=== PATIENT | male | born 1980 | race Caucasian/White ===

== ENCOUNTER 2020-02-07 16:16 | Emergency (ER) | payer BC, SELFPAY ==
--- NOTE | 2020-02-07 16:36 | ED.SKABFB ---
HPI - Skin/Abscess/Foreign Bdy General Chief complaint: Skin/Abscess/Foreign Body Stated complaint: possible spride bite Time Seen by Provider: 02/07/20 16:47 Source: patient and RN notes reviewed Mode of arrival: ambulatory Limitations: no limitations History of Present Illness HPI narrative: This is a 39 years old male presents to the office for an evaluation of insect bite of left pinky yesterday. He was outside when he noticed the sting however he did not see what it was. He reported pain immediately after the bite however he did not notice the swelling and itchiness until today. Currently he complains of tingling/pain and itchiness of his left hand. He is right-hand dominant. Td is up-to-date. He took 1 dose of Benadryl last night. Related Data Allergies Allergy/AdvReac Type Severity Reaction Status Date / Time Penicillins Allergy Unknown Unknown Verified 10/23/19 09:07 Review of Systems Review of Systems: Narrative: CONSTITUTIONAL: Denies fever, chills ENT: Denies congestion CARDIOVASCULAR: Denies chest pain RESPIRATORY: Denies dyspnea GASTROINTESTINAL: Denies abdominal pain, nausea, vomiting SKIN:Reports insect bite on his left pinky finger MUSCULOSKELETAL: Denies acute joints pain NEUROLOGIC: Denies lightheaded All other systems reviewed are negative, except as documented in HPI. [facility] Past Medical History Medical History Choledochal cyst age 4 Dyslipidemia Environmental allergies History of prediabetes IMANI (obstructive sleep apnea) Type 2 diabetes mellitus without complications Surgical History Surgical History History of cholecystectomy age 4 - choledochal cyst History of removal of cyst age 4 History of tonsillectomy and adenoidectomy first grade Hx of tympanostomy tubes 1985 and 1986 [place] teeth extracted 2018 - all 4 Family History Family History Other Family history of coronary artery disease Hypertension Social History Social History Smoking status: Never smoker Second hand tobacco smoke exposure: No Alcohol intake: current Substance use: never Substance use type: does not use Comments At time of signature, I agree with nursing past medical, surgical, social and family history. There is no relevant family history pertinent to the presenting complaint. Exam Narrative: Exam Narrative: GENERAL: This is a well-nourished, well-developed patient, in no apparent distress. NECK: Neck supple, non-tender without lymphadenopathy, masses or thyromegaly. CARDIOVASCULAR: Regular rate and rhythm without murmurs, gallops, or rubs. RESPIRATORY: Clear to auscultation. Breath sounds equal bilaterally. No wheezes, rales, or rhonchi. GASTROINTESTINAL: Abdomen soft, non-tender, nondistended. Bowel sounds are active. No hepato-splenomegaly, or palpable masses. No guarding. NEURO: awake, alert, and oriented to person, place and time. There were no obvious focal neurologic abnormalities. Steady gait EXTREMITIES: Normal range of motion. Cap refils brisk SKIN: left lateral fifth proximal phalange noted a nodule with generalize edematous, erythema and warmth without secondary cellulitis. Jada Coma Scale Eye Opening: Spontaneous 4 Jada Coma Scale Motor: Obeys Commands 6 Jada Coma Scale Verbal: Oriented 5 Course Vital Signs Vital signs: Vital Signs Temperature 98.9 F 02/07/20 16:37 Pulse Rate 78 02/07/20 16:37 Respiratory Rate 16 02/07/20 16:37 Blood Pressure 134/80 02/07/20 16:37 Pulse Oximetry 100 02/07/20 16:37 Temperature 98.9 F 02/07/20 16:37 Pulse Rate 78 02/07/20 16:37 Respiratory Rate 16 02/07/20 16:37 Blood Pressure 134/80 02/07/20 16:37 Pulse Oximetry 100 02/07/20 16:37 MDM - Skin/Abscess/Foreign Rafi JON
[2020-02-07 16:37] VITALS: BP 134/80; PULSE 78; RESP 16; TEMP 37.2; O2SAT 100
== END 2020-02-07 17:02 | disposition home or self-care (01) ==
PROVIDERS: Emergency Provider Nurse Practitioner
DX: S60.467A Insect bite (nonvenomous) of left little finger, initial encounter (principal); E78.5 Hyperlipidemia, unspecified; G47.33 Obstructive sleep apnea (adult) (pediatric); E11.9 Type 2 diabetes mellitus without complications; Z79.84 Long term (current) use of oral hypoglycemic drugs; W57.XXXA Bitten or stung by nonvenomous insect and other nonvenomous arthropods, initial encounter
CPT/HCPCS: 99213; G0463

== ENCOUNTER 2022-04-30 08:25 | Outpatient (CLI) | payer BC, SELFPAY ==
[2022-04-30 19:43] LABS: Basophils Percent Auto 0.3 % (0.2-1.2); Eosinophils Absolute Auto 0.6 K/mm3 (0-0.3); Eosinophils Percent Auto 6.5 % (0-4.4); Hemoglobin 13.3 g/dL (14.0-18.0); Immature Granulocyte Absolute 0.03 K/mm3 (0.00-0.031); Immature Granulocyte Percent A 0.3 % (0-0.5); Lymphocytes Absolute Auto 2.57 K/mm3 (0.9-3.2); Lymphocytes Percent Auto 29.2 % (18.3-44.2); Mean Corpuscular HGB Conc 33.3 g/dl (32-36); Mean Corpuscular Hemoglobin 28.8 pg (26-34); Mean Corpuscular Volume 86.6 fl (80-100); Mean Platelet Volume 11.5 fl (7.4-10.4); Monocytes Absolute Auto 0.6 K/mm3 (0.1-0.6); Monocytes Percent Auto 6.6 % (2.6-8.5); Neutrophils Percent Auto 57.1 % (45.5-73.1); Platelet Count Result 258 k/mm3 (150-375); Red Blood Count 4.62 M/mm3 (4.6-6.20); Red Cell Distribution Width 12.6 % (11.5-14.5); White Blood Count 8.8 K/mm3 (4.5-10.0)
[2022-04-30 19:52] LABS: Alanine Aminotransferase 29 U/L (6-50); Albumin Level 4.5 g/dL (3.5-5.1); Alkaline Phosphatase 63 U/L (38-126); Anion Gap 11 mmol/L (8-16); Aspartate Amino Transferase 36 U/L (17-59); Bilirubin,Total 0.7 mg/dL (0.2-1.3); Blood Urea Nitrogen 13 mg/dL (9-20); Calcium 9.6 mg/dL (8.4-10.2); Carbon Dioxide 26 mmol/L (22-30); Chloride 101 mmol/L (98-107); Cholesterol 145 mg/dL (0-200); Estimated Glomerular Filt Rate > 60; Glucose 178 mg/dL (65-110); HDL Direct 33 mg/dL; Potassium 4.3 mmol/L (3.4-5.0); Sodium 138 mmol/L (137-145); Triglycerides 136 mg/dL (<150)
[2022-04-30 20:05] LABS: LDL Cholesterol Direct 80 mg/dL
[2022-04-30 20:27] LABS: Hemoglobin A1C 7.8 % (<5.7)
[2022-04-30 20:40] LABS: Creatinine Urine 86.6 mg/dL
[2022-04-30 21:05] LABS: Microalbumin Urine Random < 6.0 mg/L (0-16.7)
[2022-04-30 21:06] LABS: MALB Creatinine Ratio < 6.9 mg/g (0-30)
[2022-04-30 21:42] LABS: Vitamin D 25 Hydroxy 25.3 ng/mL
== END 2022-04-30 08:26 | disposition home or self-care (01) ==
LOC: ANHGOSHLAB 08:26
PROVIDERS: PCP Family Medicine; Visit Provider Family Medicine
DX: E11.9 Type 2 diabetes mellitus without complications (principal); E78.5 Hyperlipidemia, unspecified; Z13.29 Encounter for screening for other suspected endocrine disorder; I10 Essential (primary) hypertension; Z00.00 Encounter for general adult medical examination without abnormal findings; E55.9 Vitamin D deficiency, unspecified; E53.8 Deficiency of other specified B group vitamins
CPT/HCPCS: 36415; 80053; 80061; 82043; 82306; 82607; 83036; 84443; 85025

== ENCOUNTER 2022-09-01 12:37 | Outpatient (CLI) | payer BC, SELFPAY ==
--- NOTE | ~2022-09-01 | CT_ITS ---
EXAMINATION: CT abdomen pelvis w con DATE: 09/01/2022 13:08 INDICATION: Right upper quadrant abdominal pain TECHNIQUE: Computed tomography (CT) of the abdomen and pelvis was performed with 100 CC Omnipaque 350 intravenous contrast. Automated exposure control and iterative reconstruction technique were employe d. Exam dose: 1270.05 mGy-cm total exam DLP. COMPARISON: None. FINDINGS: No infiltrate or consolidation at the lung bases. Normal heart size. No pericardial or pleu ral effusion. There is a curvilinear lucency at the anterior aspect of the hepatic dome, which isn't associated wit h any adjacent subcapsular or perihepatic abnormal fluid collection. This may be an anatomic variant versus less likely hepatic laceration. No prior examinations are available for comparison. Clinical c orrelation is advised. No hepatic space-occupying mass lesion is detected. There is a fluid-filled up to 11 mm wide structure with surgical clips in the anterior and, situated near the tamara hepatis, which may be cystic duct remnant filled with bile post cholecystectomy. The i ntrahepatic and extra hepatic bile ducts are not dilated. There is a small locule of gas within a left hepatic duct. No pancreatic mass lesion or ductal dilatation. Normal splenic size. Normal morphology of the adrenal glands. 13 mm lower pole left renal cyst. Approximately 5.6 mm lower pole left renal cyst. The kidneys are ot herwise unremarkable. No urinary tract calculus or hydroureteronephrosis. Mild prostate enlargement. Mild diffuse bladder wall thickening. Normal caliber of the abdominal aorta. No intraperitoneal or retroperitoneal or pelvic mass lesion or adenopathy or ascites. Mild bilateral fat containing inguinal hernias. Normal appendix. There is a prominent amount of fecal material in the colon. No bowel obstruction, eamon wel wall thickening, pneumatosis or intraperitoneal free air is detected. Included skeletal structures are unremarkable. IMPRESSION: Right upper quadrant distended probable cystic duct remnant Minimal pneumobilia Subtle linear lucency at the anterior hepatic dome, likely anatomic variant; less likely would be a h epatic laceration Normal appendix Bilateral fat-containing inguinal hernias Reviewed, dictated and finalized at [facility]. Reviewed, dictated and finalized at location L. VERY UNIT OPERATOR IMPRESSION: Right upper quadrant distended probable cystic duct remnant Minimal pneumobilia Subtle linear lucency at the anterior hepatic dome, likely anatomic variant; le ss likely would be a hepatic laceration Normal appendix Bilateral fat-containing inguinal hernias
[2022-09-01 13:04] LABS: Estimated Glomerular Filt Rate > 60
[2022-09-01 13:59] LABS: Alanine Aminotransferase 26 U/L (6-50); Albumin Level 4.2 g/dL (3.5-5.1); Alkaline Phosphatase 58 U/L (38-126); Anion Gap 8 mmol/L (8-16); Aspartate Amino Transferase 22 U/L (17-59); Bilirubin,Total 0.9 mg/dL (0.2-1.3); Blood Urea Nitrogen 11 mg/dL (9-20); Calcium 8.6 mg/dL (8.4-10.2); Carbon Dioxide 28 mmol/L (22-30); Chloride 100 mmol/L (98-107); Estimated Glomerular Filt Rate > 60; Glucose 130 mg/dL (65-110); Potassium 3.8 mmol/L (3.4-5.0); Sodium 136 mmol/L (137-145)
[2022-09-01 14:23] LABS: Hemoglobin A1C 7.1 % (<5.7)
== END 2022-09-01 12:38 | disposition home or self-care (01) ==
PROVIDERS: PCP Family Medicine; Visit Provider Family Medicine
DX: E11.9 Type 2 diabetes mellitus without complications (principal); R10.11 Right upper quadrant pain; K40.20 Bilateral inguinal hernia, without obstruction or gangrene, not specified as recurrent
CPT/HCPCS: 74177; 80053; 83036; Q9967

== ENCOUNTER 2022-09-01 13:57 | Emergency (ER) | payer BC, SELFPAY ==
[2022-09-01] VITALS (10 sets, daily range): BP systolic 129–146; BP diastolic 85–95; PULSE 71–86; RESP 16–20; TEMP 36.4; O2SAT 95–100
--- NOTE | ~2022-09-01 | CT_ITS ---
EXAMINATION: CT abdomen pelvis w con DATE: 09/01/2022 18:53 INDICATION: Right upper quadrant abdominal pain. TECHNIQUE: Computed tomography (CT) of the abdomen and pelvis was performed with 100 mL Omnipaque 350 intravenous contrast. Automated exposure control and iterative reconstruction technique were employe d. The dose-length product was 1347.06 mGy-cm. COMPARISON: CT abdomen and pelvis at 1:03 PM FINDINGS: The visualized portions of the lung bases demonstrate mild atelectasis. No pleural effusion . The heart size is normal. No pericardial effusion. There is a crescent of hypodensity in segment II of the liver at the dome with maximum depth of 3.1 cm. There are changes of cholecystectomy. The s pleen, pancreas, adrenal glands, and right kidney are normal. There are cysts in left kidney measurin g up to 14 mm. There are no dilated loops of bowel. The appendix is normal. The prostate is mildly en larged. There is prominent fat in the inguinal canals that may be hernias. There are no pathologicall y enlarged lymph nodes. There is no free intraperitoneal fluid. There is mild chronic anterior wedgin g of L1 vertebral body. IMPRESSION: 1. Stable crescent of hypodensity in the liver, most likely focal steatosis given the absence of rece nt trauma. A liver laceration could have the same appearance. Reviewed, dictated and finalized at location [facility]. ECTOR MACHINE PARTS IMPRESSION: 1. Stable crescent of hypodensity in the liver, most likely focal steatosis giv en the absence of recent trauma. A liver laceration could have the same appeara nce.
--- NOTE | 2022-09-01 15:44 | ED.GENADULT ---
HPI - General Adult General Chief complaint: Recheck/Abnormal Lab/Rx Stated complaint: liver laceration RUQ pain Time Seen by Provider: 09/01/22 15:24 History of Present Illness HPI narrative: Patient is a 42-year-old male with a history of diabetes, GERD, prior cholecystectomy during childhood presenting with abnormal CT. Patient states that for the last 2 days he has had pain in his right upper quadrant. He saw his PCP earlier today who obtained an outpatient CT scan which is concerning for possible liver laceration . Patient denies any recent trauma. No falls, MVC, altercations, etc. Denies nausea vomiting. Denies anticoagulation or antiplatelets. Denies fevers or chills, chest pain, shortness of breath, diarrhea, dysuria, leg swelling. Related Data Home Medications Medication Instructions Recorded Confirmed omeprazole 20 mg tablet,delayed 20 mg PO DAILY 03/24/22 09/01/22 release Allergies Allergy/AdvReac Type Severity Reaction Status Date / Time No Known Allergies Allergy Verified 09/01/22 15:17 Review of Systems Review of Systems: All systems reviewed & are unremarkable except as noted in HPI and below PMFSH Past Medical History Medical History Choledochal cyst age 4 Dyslipidemia Environmental allergies GERD without esophagitis History of esophageal dilatation 10/2020 IMANI (obstructive sleep apnea) Type 2 diabetes mellitus without complications Surgical History Surgical History History of cholecystectomy age 4 - choledochal cyst History of removal of cyst age 4 History of tonsillectomy and adenoidectomy first grade Hx of tympanostomy tubes 1985 and 1986 [place] teeth extracted 2018 - all 4 Family History Family History Other Family history of coronary artery disease Hypertension Social History Social History Smoking status: Former smoker Second hand tobacco smoke exposure: No Alcohol intake: current Alcohol use details: 1 to 2 beers consumed weekly Substance use: never Substance use type: does not use Lack of Transportation: No Lack of Food: Never True Current Housing: I Have Housing Concerned About Future Housing: No Difficulty Paying Gas/Electric Bills: No Difficulty Paying for Meds: No Currently Unemployed: No Education: Master's Degree or Higher Difficulty w/ Childcare or Family Care: No Living arrangements: with family Occupation/Education: occupation Additional occupation/education comments: [employer] Gender identity (if verbalized by the patient): Male Sexual Orientation (if Verbalized by the Patient): Straight or Heterosexual Agree to blood products: Yes Exam Narrative: GENERAL: Well-appearing, well-nourished, and in no acute distress. HEAD: Normocephalic, atraumatic. EYES: PERRLA and EOMI. ENT: Nares clear, no rhinorrhea or epistaxis. Mucous membranes moist. NECK: Supple. CHEST: Clear to auscultation. No respiratory distress. HEART: Regular rate and rhythm. No murmur heard. Normal peripheral pulses. ABDOMEN: Soft, +RUQ tenderness without guarding or rebound EXTREMITIES: Normal range of motion. No edema. SKIN: Warm, dry, no rash. NEURO: No focal deficits. Alert and oriented x3. PSYCH: Normal mood and affect. Course Vital Signs Vital signs: Vital Signs Temperature 97.6 F 09/01/22 14:17 Pulse Rate 86 09/01/22 14:17 Respiratory Rate 16 09/01/22 14:17 Blood Pressure 142/85 H 09/01/22 14:17 Pulse Oximetry 100 09/01/22 14:17 Temperature 97.6 F 09/01/22 14:17 Pulse Rate 75 09/01/22 20:29 Respiratory Rate 20 09/01/22 20:29 Blood Pressure 142/92 H 09/01/22 20:29 Pulse Oximetry 96 09/01/22 20:29 Medical Decision Making MDM Narrative Medical decisio
[2022-09-01 16:30] LABS: Basophils Percent Auto 0.4 % (0.2-1.2); Eosinophils Absolute Auto 0.3 K/mm3 (0-0.3); Eosinophils Percent Auto 4.2 % (0-4.4); Hematocrit 43.1 % (42.0-52.0); Hemoglobin 14.3 g/dL (14.0-18.0); Immature Granulocyte Absolute 0.02 K/mm3 (0.00-0.031); Immature Granulocyte Percent A 0.3 % (0-0.5); Lymphocytes Absolute Auto 1.98 K/mm3 (0.9-3.2); Lymphocytes Percent Auto 25.8 % (18.3-44.2); Mean Corpuscular HGB Conc 33.2 g/dl (32-36); Mean Corpuscular Hemoglobin 28.9 pg (26-34); Mean Corpuscular Volume 87.1 fl (80-100); Mean Platelet Volume 10.9 fl (7.4-10.4); Monocytes Absolute Auto 0.7 K/mm3 (0.1-0.6); Monocytes Percent Auto 9.3 % (2.6-8.5); Neutrophils Absolute Auto 4.6 K/mm3 (1.3-6.7); Platelet Count Result 269 k/mm3 (150-375); Red Blood Count 4.95 M/mm3 (4.6-6.20); Red Cell Distribution Width 12.4 % (11.5-14.5); White Blood Count 7.7 K/mm3 (4.5-10.0)
[2022-09-01 16:45] LABS: INR 1.1; Prothrombin Time 13.4 Seconds (11.1-14.7)
[2022-09-01 16:46] LABS: Partial Thromboplastin Time 28.5 SECONDS (22.3-36.8)
--- NOTE | 2022-09-01 16:54 | ECG_ITS ---
Measurements Intervals [place] Rate: 66 P: 12 IA: 186 QRS: -13 QRSD: 104 T: 2 QT: 402 QTc: 422 Interpretive Statements SINUS RHYTHM INCOMPLETE RIGHT BUNDLE BRANCH BLOCK DELAYED PRECORDIAL R/S TRANSITION BORDERLINE T WAVE ABNORMALITY- INFERIOR LEADS BORDERLINE ECG NO PREVIOUS ECG AVAILABLE FOR COMPARISON Electronically Signed On 09-01-2022 19:56:22 VACATION PLANNER by Aubrey Pugh D.O.
--- NOTE | 2022-09-01 16:59 | PC.NURSE ---
Pt attempted to walk to bathroom, became diaphoretic and lightheaded. Pt assisted to room. Dr. Pandya to bedside, EKG performed and NS bolus started.
[2022-09-01] MEDS: SODIUM CHLORIDE 0.9% IV 1,000 ML 999 ML (17:02)
[2022-09-01 18:34] LABS: Alanine Aminotransferase 29 U/L (6-50); Albumin Level 4.7 g/dL (3.5-5.1); Alkaline Phosphatase 69 U/L (38-126); Anion Gap 8 mmol/L (8-16); Aspartate Amino Transferase 31 U/L (17-59); Blood Urea Nitrogen 11 mg/dL (9-20); Calcium 9.3 mg/dL (8.4-10.2); Carbon Dioxide 28 mmol/L (22-30); Chloride 98 mmol/L (98-107); Estimated CRCL calculation 152 ml/min; Estimated Glomerular Filt Rate > 60; Glucose 107 mg/dL (65-110); Potassium 3.6 mmol/L (3.4-5.0); Sodium 134 mmol/L (137-145)
== END 2022-09-01 20:31 | disposition home or self-care (01) ==
PROVIDERS: Emergency Provider Emergency Medicine; PCP Family Medicine
DX: R10.11 Right upper quadrant pain (principal); E11.9 Type 2 diabetes mellitus without complications; E78.5 Hyperlipidemia, unspecified; K21.9 Gastro-esophageal reflux disease without esophagitis; G47.33 Obstructive sleep apnea (adult) (pediatric); Z87.891 Personal history of nicotine dependence; Z79.84 Long term (current) use of oral hypoglycemic drugs; I45.10 Unspecified right bundle-branch block; R94.31 Abnormal electrocardiogram [ECG] [EKG]
CPT/HCPCS: 36415; 74177; 80053; 85025; 85610; 85730; 93005; 96360; 99284; J7030; Q9967

== ENCOUNTER 2023-09-27 08:19 | Outpatient (CLI) | payer BC, SELFPAY ==
[2023-09-27 19:12] LABS: Basophils Percent Auto 0.5 % (0.2-1.2); Eosinophils Absolute Auto 0.3 K/mm3 (0-0.3); Eosinophils Percent Auto 3.8 % (0-4.4); Hematocrit 42.7 % (42.0-52.0); Hemoglobin 13.3 g/dL (14.0-18.0); Immature Granulocyte Absolute 0.02 K/mm3 (0.00-0.031); Immature Granulocyte Percent A 0.2 % (0-0.5); Lymphocytes Absolute Auto 2.53 K/mm3 (0.9-3.2); Lymphocytes Percent Auto 29.1 % (18.3-44.2); Mean Corpuscular HGB Conc 31.1 g/dl (32-36); Mean Corpuscular Hemoglobin 28.9 pg (26-34); Mean Corpuscular Volume 92.8 fl (80-100); Mean Platelet Volume 11.1 fl (7.4-10.4); Monocytes Absolute Auto 0.5 K/mm3 (0.1-0.6); Monocytes Percent Auto 6.2 % (2.6-8.5); Neutrophils Absolute Auto 5.2 K/mm3 (1.3-6.7); Neutrophils Percent Auto 60.2 % (45.5-73.1); Platelet Count Result 248 k/mm3 (150-375); Red Cell Distribution Width 12.6 % (11.5-14.5); White Blood Count 8.7 K/mm3 (4.5-10.0)
[2023-09-27 19:29] LABS: Vitamin D 25 Hydroxy 36.6 ng/mL
[2023-09-27 20:51] LABS: Creatinine Urine 200.4 mg/dL
[2023-09-27 20:59] LABS: MALB Creatinine Ratio 5.3 mg/g (0-30); Microalbumin Urine Random 10.7 mg/L (0-16.7)
[2023-09-27 21:01] LABS: Alanine Aminotransferase 28 U/L (6-50); Albumin Level 4.3 g/dL (3.5-5.1); Alkaline Phosphatase 63 U/L (38-126); Anion Gap 7 mmol/L (8-16); Aspartate Amino Transferase 33 U/L (17-59); Bilirubin,Total 0.6 mg/dL (0.2-1.3); Blood Urea Nitrogen 14 mg/dL (9-20); Calcium 9.2 mg/dL (8.4-10.2); Carbon Dioxide 26 mmol/L (22-30); Chloride 105 mmol/L (98-107); Cholesterol 141 mg/dL (0-200); Estimated Glomerular Filt Rate > 60; Glucose 168 mg/dL (65-110); HDL Direct 33 mg/dL; Potassium 4.5 mmol/L (3.4-5.0); Sodium 138 mmol/L (137-145); Triglycerides 131 mg/dL (<150)
[2023-09-27 21:12] LABS: LDL Cholesterol Direct 87 mg/dL
[2023-09-27 22:11] LABS: Hemoglobin A1C 8.6 % (<5.7)
== END 2023-09-27 08:20 | disposition home or self-care (01) ==
LOC: ANHGOSHLAB 08:21
PROVIDERS: PCP Family Medicine; Visit Provider Family Medicine
DX: Z00.00 Encounter for general adult medical examination without abnormal findings (principal); E78.5 Hyperlipidemia, unspecified; E55.9 Vitamin D deficiency, unspecified; E11.9 Type 2 diabetes mellitus without complications; G47.33 Obstructive sleep apnea (adult) (pediatric); E53.8 Deficiency of other specified B group vitamins; Z13.29 Encounter for screening for other suspected endocrine disorder
CPT/HCPCS: 36415; 80053; 80061; 82043; 82306; 82607; 83036; 84443; 85025

== ENCOUNTER 2024-03-27 09:04 | Outpatient (CLI) | payer BC, SELFPAY ==
[2024-03-27 14:44] LABS: Basophils Percent Auto 0.4 % (0.2-1.2); Eosinophils Absolute Auto 0.3 K/mm3 (0-0.3); Eosinophils Percent Auto 3.9 % (0-4.4); Hematocrit 42.3 % (42.0-52.0); Hemoglobin 13.7 g/dL (14.0-18.0); Immature Granulocyte Absolute 0.03 K/mm3 (0.00-0.031); Immature Granulocyte Percent A 0.4 % (0-0.5); Lymphocytes Absolute Auto 2.43 K/mm3 (0.9-3.2); Lymphocytes Percent Auto 32.4 % (18.3-44.2); Mean Corpuscular HGB Conc 32.4 g/dl (32-36); Mean Corpuscular Hemoglobin 29.9 pg (26-34); Mean Corpuscular Volume 92.4 fl (80-100); Monocytes Absolute Auto 0.6 K/mm3 (0.1-0.6); Monocytes Percent Auto 8.1 % (2.6-8.5); Neutrophils Absolute Auto 4.1 K/mm3 (1.3-6.7); Neutrophils Percent Auto 54.8 % (45.5-73.1); Platelet Count Result 247 k/mm3 (150-375); Red Blood Count 4.58 M/mm3 (4.6-6.20); Red Cell Distribution Width 12.4 % (11.5-14.5); White Blood Count 7.5 K/mm3 (4.5-10.0)
[2024-03-27 15:32] LABS: Creatinine Urine 158.9 mg/dL
[2024-03-27 15:45] LABS: Vitamin D 25 Hydroxy 45.9 ng/mL
[2024-03-27 15:59] LABS: Thyroid Stimulating Hormone Reflex 0.977 uIU/mL (0.465-4.68)
[2024-03-27 16:49] LABS: MALB Creatinine Ratio < 3.8 mg/g (0-30); Microalbumin Urine Random < 6.0 mg/L (0-16.7)
[2024-03-27 17:55] LABS: Alanine Aminotransferase 25 U/L (6-50); Albumin Level 4.5 g/dL (3.5-5.1); Alkaline Phosphatase 66 U/L (38-126); Anion Gap 12 mmol/L (4-12); Aspartate Amino Transferase 32 U/L (17-59); Bilirubin,Total 0.8 mg/dL (0.2-1.3); Blood Urea Nitrogen 15 mg/dL (9-20); Calcium 9.4 mg/dL (8.4-10.2); Carbon Dioxide 29 mmol/L (22-30); Chloride 96 mmol/L (98-107); Cholesterol 173 mg/dL (0-200); Estimated Glomerular Filt Rate > 60; Glucose 170 mg/dL (65-110); HDL Direct 34 mg/dL; Potassium 4.5 mmol/L (3.4-5.0); Sodium 137 mmol/L (137-145); Triglycerides 223 mg/dL (<150)
[2024-03-27 18:06] LABS: LDL Cholesterol Direct 89 mg/dL
[2024-03-27 21:11] LABS: Hemoglobin A1C 8.2 % (<5.7)
== END 2024-03-27 09:05 | disposition home or self-care (01) ==
LOC: ANHGOSHLAB 09:05
PROVIDERS: PCP Family Medicine; Visit Provider Family Medicine
DX: Z00.00 Encounter for general adult medical examination without abnormal findings (principal); E78.5 Hyperlipidemia, unspecified; E11.9 Type 2 diabetes mellitus without complications; E55.9 Vitamin D deficiency, unspecified; I10 Essential (primary) hypertension; G47.33 Obstructive sleep apnea (adult) (pediatric); Z13.29 Encounter for screening for other suspected endocrine disorder
CPT/HCPCS: 36415; 80053; 80061; 82043; 82306; 83036; 84443; 85025

== ENCOUNTER 2024-10-09 09:47 | Outpatient (CLI) | payer BC, SELFPAY ==
--- OUTSIDE RECORDS SUMMARY | 2024-10-09 10:42 | XMS_ITS | Patient Health Summary ---
Author Organization [facility] Address [address] [place] [address] Care Team Providers Care Welder Metal Fab Name Role Phone Jessica Ayala MD Primary Care Provider Note from Formerly named [facility],non-owned Affiliates and Associated Physician Practices is amultiple site organization consisting of ambulatory clinics and hospital sitesin [place], [place], [place] and [place]. This disclosure is being madepursuant to the Care Everywhere program and may not contain all information available regarding this patient. Last updated 18.[facility] Allergies * Penicillins(Unknown) Medications * Be aware that medications may not be up to date on this document. Alwaysverify current medications with the patient. * fluticasone propionate (FLONASE) 50 MCG/ACT nasal spray(Started 03/21/2018) [place] 2 sprays into each nostril once daily Social History Tobacco Use Types Packs/Day Years Used Date Smoking Tobacco: Never Smokeless Tobacco: Never Alcohol Use Standard Drinks/Week Comments Yes 0 (1 standard drink = 0.6 oz pur e alcohol) socially on weekends Sex and Gender Information Value Date Recorded Sex Assigned at Not on file Gender Identity Not on file Sexual Orientation Not on file Last Filed Vital Signs Vital Sign Reading Time Taken Comments Blood Pressure 118/82 03/21/2018 11:10 AM CDT Pulse 91 03/21/2018 11:10 AM CDT Temperature 37.1 C (98.7 F) 03/21/2018 11:10 AM CDT Respiratory Rate 16 03/21/2018 11:10 AM CDT Oxygen Saturation 98% 03/21/2018 11:10 AM CDT Inhaled Oxygen Concentration - - Weight 108.9 kg (240 lb) 03/21/2018 11:10 AM CDT Height 185.4 cm (6' 1 ) 03/21/2018 11:10 AM CDT Body Mass Index 31.66 03/21/2018 11:10 AM CDT Care Teams Welder Metal Fab Relationship Specialty Start Date End Date Jessica Ayala MD [address] [place] [id number] PCP - General Family Medicine 03/21/18
--- OUTSIDE RECORDS SUMMARY | 2024-10-09 10:42 | XMS_ITS | Clinical Summary ---
Author Organization [facility] Address [address] [place] [address] Care Team Providers Care Safety Investigator/Cause Analyst Name Role Phone Unavailable Primary Care Provider Unavailabl e Social History Tobacco Use Types Packs/Day Years Used Date Smoking Tobacco: Never Assessed Sex and Gender Information Value Date Recorded Sex Assigned at Not on file Legal Sex Male 11:53 AM CDT Gender Identity Not on file Sexual Orientation Not on file Plan of Treatment Health Maintenance Due Date Last Done Comments Hepatitis C Virus (HCV) Screening 1979 TdaP Immunization 1979 Hepatitis B Immunization (1 of 3 - 19+ 3-dose series) 1998 Colonoscopy 2024 Colorectal Cancer Screening 2024 Influenza Immunization (#1) 2024 SARS-COV-2 Immunization ( - 2023-25 season) 2024 Respiratory Syncytial Virus (RSV) Immunization (Adult) (1 - 1-dose 75+ series) 2054 Meningococcal Immunization (ACWY) Aged Out No longer eligible based on patient's age to complete this topic Pneumococcal Immunization Combined Aged Out No longer eligible based on patient's age to complete this topic Rotavirus Immunization Aged Out No lo nger eligible based on patient's age to complete this topic
--- OUTSIDE RECORDS SUMMARY | 2024-10-09 10:42 | XMS_ITS | Clinical Summary ---
Author Organization [facility] Address [address] [place] [address] Care Team Providers Care Automotive Brake Specialist Name Role Phone Jayy Be MD Primary Care Provider [phone] Allergies Active Allergy Reactions Criticality Noted Date Comments Penicillins Unknown 11/16/2017 Medications pantoprazole (PROTONIX) 40 mg Tablet, Delayed Release (E.C.) Take 1 Tab by mouth daily. May substitute any PPI's that is covered by insurance and of equivalent strength. 30 Tab 2 3 Active Active Problems Problem Noted Date Diagnosed Date Varicose vein 10/17/2010 Hyperlipidemia 09/21/2008 Allergic rhinitis 05/29/2008 Overview (07/17/2013): Immunotherapy- 07/2013 GERD (gastroesophageal reflux disease) 8 Immunizations Immunization Administration Dates Next Due (ADACEL/BOOSTRIX)(10 YR UP) TDAP VACCINE, 0.5ML, IM 07/13/2012 Influenza Vaccine Split 3+ Yrs IM 07/17/2013 Family History Medical History Relation Name Comments Healthy Brother 1 Healthy Brother 2 Heart Disease Father VT's at 55's. 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 Gender Identity Not on file Sexual Orientation Not on file Occupation Industry Job Start Date Job End Date Not on file Not on file Not on file Not on file Last Filed Vital Signs Vital Sign Reading Time Taken Comments Blood Pressure 119/84 11/16/2017 8:54 AM CDT Pulse 90 11/16/2017 8:54 AM CDT Temperature 37.1 C (98.7 F) 11/16/2017 8:54 AM CDT Respiratory Rate 18 11/16/2017 8:54 AM CDT Oxygen Saturation 98% 11/16/2017 8:54 AM CDT Inhaled Oxygen Concentration - - Weight 111.1 kg (245 lb) 11/16/2017 8:54 AM CDT Height 182.9 cm (6') 11/16/2017 8:54 AM CDT Body Mass Index 33.23 11/16/2017 8:54 AM CDT Plan of Treatment Health Maintenance Due Date Last Done Comments HEPATITIS B VACCINES (1 of 3 - 19+ 3-dose series) 1998 DTAP/TDAP/TD VACCINES (2 - T d or Tdap) 07/13/2022 07/13/2012 INFLUENZA VACCINE (#1) 2024 07/17/2013 COLORECTAL SCREENING 2024 Colorectal Cancer Screening 2024 FIT-DNA Q 3 years 2024 FIT/FOBT Q 1 year 2024 Flex Sig/CT Colonography Q 5 years 2024 Preventative Visit- Commercial 08/16/2024 07/17/2013, 07/13/2012 HPV VACCINES Aged Out No longer eligi ble based on patient's age to complete this topic Insurance [facility] BLUE ACCESS/TRUE BLUE PPO Care Teams Automotive Brake Specialist Relationship Specialty [place] [id number] [address] PCP - General 12/05/08
--- OUTSIDE RECORDS SUMMARY | 2024-10-09 10:42 | XMS_ITS | Clinical Summary ---
Author Organization [facility] Address [address] [place] [address] Care Team Providers Care Boiler Water Tester Name Role Phone Jessica Ayala MD Primary Care Provider Source Comments [facility],non-owned Affiliates and Associated Physician Practices is amultiple site organization consisting of ambulatory clinics and hospital sitesin [place], [place] and [place]. This disclosure is being madepursuant to the Care Everywhere program and may not contain all information available regarding this patient. Last updated 18.[facility] Allergies Active Allergy Reactions Criticality Noted Date Comments Penicillins Unknown 10/17/2016 As a child Medications * Be aware that medications may not be up to date on this document. Alwaysverify current medications with the patient. Medication Sig Dispensed Refills Start Date End Date Status fluticasone propionate (FLONASE) 50 MCG/ACT nasal sprayIndications:Dysf unction of both eustachian tubes [place] 2 sprays into each nostril once daily 1 bottles 03/21/2018 Active Family History Medical History Relation Name Comments CAD (Coronary Artery Disease) Father [place] at age 65 Diabetes - Type 2 Mother Relation Name Status Comments Father Alive Mother Alive Social History Tobacco [...] Mass Index 31.66 03/21/2018 11:10 AM CDT Plan of Treatment Health Maintenance Due Date Last Done Comments COLOGUARD (AGES 45-75) - COL ON CA SCREENING 1979 COLON MONITORING 1979 COLONOSCOPY - COLON CA SCREENING 1979 CT COLONOGRAPHY - COLON CA SCREENING 1979 Colorectal Cancer Screening 1979 FIT - COLON CA SCREENING 1979 FLEX SIG - COLON CA SCREENING 1979 LIPID TESTING 1979 HIV SCREENING 1994 HEPATITIS C SCREENING 04/11/1997 DTAP/TDAP/TD VACCINES (1 - Tdap) 1998 HEPATITIS B VACCINE (1 of 3 - 19+ 3-dose series) 1998 COVID-19 VACCINE (1 - 2023-2 5 season) 2024 INFLUENZA VACCINE (#1) 2024 DEPRESSION SCREENING 08/16/2024 ZOSTER VACCINE (1 of 2) 2029 HIB VACCINE Aged Out No longer eligi ble based on patient's age to complete this topic HPV VACCINE Aged Out No longer eligi ble based on patient's age to complete this topic MENINGOCOCCAL (Group B) VACCINE Aged Out No longer eligible based on patient's age to complete this topic MENINGOCOCCAL VACCINE Aged Out No yaquelin ngozi eligible based on patient's age to complete this topic PNEUMOCOCCAL VACCINE Aged Out No long er eligible based on patient's age to complete this topic Care Teams Boiler Water Tester Relationship Specialty Start Date End Date Jessica Ayala MD [address] [place] [address] PCP - General Family Medicine 03/21/18
--- OUTSIDE RECORDS SUMMARY | 2024-10-09 10:42 | XMS_ITS | Clinical Summary ---
Author Organization [facility] Address [address] [place] [address] Care Team Providers Care Sediment Remediation Consultant Name Role Phone Jessica Ayala MD Primary Care Provider Allergies Active Allergy Reactions Criticality Noted Date Comments Penicillins Rash Medium 10/17/2016 As a child Medications atorvastatin (LIPITOR) 40 mg tablet Take 40 mg by mouth daily 09/30/2020 Active metFORMIN XR (GLUCOPHAGE XR) 500 mg 24 hr tablet Take 2 tablets by mouth daily with dinner 09/30/2020 Active omeprazole (PriLOSEC) 20 mg capsule Take 20 mg by mouth daily Active fluticasone propionate (Flovent HFA) 220 mcg/actuation inhalerIndicatio ns:Eosinophilic Esophagitis [place] 2 sprays into mouth and swallow twice daily. Should not use spacer or inhale medication. Should not eat or drink for 30 minutes after administrati on. 1 Inhaler 1 12/05/2020 Active Active Problems Problem Noted Date Diagnosed Date Eosinophilic esophagitis 12/05/2020 Dysphagia 07/24/2020 Overview (07/24/2020): Added automatically from request for surgery [id number] Pain of foot 06/24/2011 Surgical History Surgery Date Site/Laterality Comments CHOLECYSTECTOMY Medical History Medical History Date Comments Type 2 diabetes mellitus (HCC) Hyperlipidemia Family History Medical History Relation Name Comments Diabetes Mother Hypertension Mother Relation Name Status Comments Mother Social History Tobacco Use Types Packs/Day Years Used Date Smoking Tobacco: Never Personal Safety Answer Date Recorded Getting School Help Needed Not on file 10/29 Sex and Gender Information Value Date Recorded Sex Assigned at Not on file 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 Gender Identity Not on file Sexual Orientation Not on file Obstetrics History Last Filed Vital Signs Vital Sign Reading Time Taken Comments Blood Pressure 130/72 01/30/2021 2:27 PM CDT Pulse 94 01/30/2021 2:27 PM CDT Temperature 36.2 C (97.1 F) 01/30/2021 2:27 PM CDT Respiratory Rate 20 01/30/2021 2:27 PM CDT Oxygen Saturation 98% 01/30/2021 2:27 PM CDT Inhaled Oxygen Concentration - - Weight 117.3 kg (258 lb 9.6 oz) 01/30/2021 2:27 PM CDT Height 182.9 cm (6') 01/30/2021 2:27 PM CDT Body Mass Index 35.07 01/30/2021 2:27 PM CDT Plan of Treatment Not on file [place] For more information, please contact: [phone] * Full Code (Latest Code Status on File) Date Activated Date Inactivated Comments 10/08/2020 9:17 AM 10/08/2020 3:38 PM * Full Code Date Activated Date Inactivated Comments 10/08/2020 8:58 AM 10/08/2020 9:16 AM Care Teams Sediment Remediation Consultant Relationship Specialty Start Date End Date Jessica Ayala MD PCP - General Family Practice 07/03/20
--- OUTSIDE RECORDS SUMMARY | 2024-10-09 10:42 | XMS_ITS ---
Author Organization [facility] Address [address] [place] [address] Care Team Providers Care Foam Fabricator Name Role Phone Lucy Jessica Primary Care Provider Un available Petr Escudero Unavailable [phone] REASON FOR VISIT SCIT - Traditional Schedule Allergy immunotherapy Medications Medication SIG (Take, Route, Frequency, Duration) Notes Start Date End Date Status SIT (TRADITIONAL) variable per schedule SC per schedule for to be determined Active Encounters Encounter Location Date Provider Diagnosis [facility] [address] [place] [address] 10/09/2024 Petr Escudero Allergic rhinitis du e to pollen J30.1 ; Other allergic rhinitis J30.89 ; Allergic rhinitis due to animal (cat) (dog) hair and dander J30.81 and Other chronic allergic conjunctivitis H10.45 Assessments Encounter Date Diagnosis (ICD Code) Assessment Notes Treatment Notes Treatment Clinical Notes Section Notes 10/09/2024 Allergic rhinitis due to pollen (ICD-10 - J30.1) 10/09/2024 Other allergic rhinitis (ICD-10 - J30.89) 10/09/2024 Allergic rhinitis due to animal (cat) (dog) hair and dander (ICD-10 - J30.81) 10/09/2024 Other chronic allergic conjunctivitis (ICD-10 - H10.45) Plan Of Treatment Medication Medication Name Sig Start Date Stop Date Notes SIT (TRADITIONAL) variable per schedule SC per schedule for to be determined Next Appt Details Follow Up: 1 Week, Reason: Provider Name:Petr Escudero , 10/09/2024 04:30:00 PM, [address] [facility] [facility], [address], [place], [address], Progress Notes * Shree AYALA EDOB:1980 ( 44 yo M)Acc No.[id number]:10/09/2024 SCIT-Aeroallergen Patient: Shree FORTUNE Provider: Андрей Escudero MD :1980 A ge:44 Y S ex:Male Date:10/09/2024 Address:[address] [place] [address] [facility] Pcp:Jessica Ayala Subjective: * Chief Complaints: * 1 . SCIT - Traditional Schedule Allergy immunotherapy. * HPI: * Introduction: The patient is here for scheduled immunotherapy. Please see the attached specialty form regarding the specifics of the administration of these vaccines. As per our protocol, they must undergo a screening health questionnaire (medication changes, reaction(s) to last immunotherapy dose(s), current health status, ACT (if appropriate), self-injectable epinephrine on patient(?) and peak flow (if appropriate)). Also, the patient must wait in our office for 30 minutes after receiving the vaccine(s). Furthermore, every patient must have an epinephrine pen (self-injectable) with them at the time of administration--and carry if for the following 1.5 hours after they leave our office. The patient must also have taken their antihistamine the day of the injection, preferably 2 hours prior. The consent form for SCIT (subcutaneous immunotherapy) is on file. * Medical History: Objective: * Vitals: Assessment: * Assessment: 1. A llergic rhinitis due to pollen - J30.1 (Primary) 2 . O ther allergic rhinitis - J30.89 3 . A llergic rhinitis due to animal (cat) (dog) hair and dander - J30.81 4 . O ther chronic allergic conjunctivitis - H10.45 Plan: * Treatment: * Follow Up: 1 Week * Billing Information: * Visit Code: * Procedure Codes: 32417 IMMUNOTHERAPY INJECTIONS. * Electronic signature of Rebeca Escudero MD, FAAAAI on 10/09/2024 at 10:41 AM [facility] Sign off status: Pending * Provider: Андрей Escudero MD Date: 10/09/2024 Generated for Lorena palencia/Shelby/Alonzo on: 10/09/2024 10:41 AM [facility] History and Physical Notes * HPI (History of Present Illness) Category Sub-Category Detail Notes Category Not es *Introduction The patient is here for scheduled immunotherapy. Please see the attached specialty form regarding the specifics of the administration of these vaccines. As per our protocol, they must undergo a screening health questionnaire (medication changes, reaction(s) to last immunotherapy dose(s), current health status, ACT (if appropriate), self-injectable epinephrine on patient(?) and peak flow (if appropriate)). Also, the patient must wait in our office for 30 minutes after receiving the vaccine(s). Furthermore, every patient must have an epinephrine pen (self-injectable) with them at the time of administration--and carry if for the following 1.5 hours after they leave our office. The patient must also have taken their antihistamine the day of the injection, preferably 2 hours prior. The consent form for SCIT (subcutaneous immunotherapy) is on file.
--- OUTSIDE RECORDS SUMMARY | 2024-10-09 10:42 | XMS_ITS | Referral Summary ---
Author Organization [facility] Address [address] [place] [address] Care Team Providers Care Reverse Unit Operator Fisherman Name Role Phone Jessica Ayala MD Primary [...] (Flovent HFA) 220 mcg/actuation inhalerIndicatio ns:Eosinophilic Esophagitis [place] 2 sprays into mouth and swallow twice daily. Should not use spacer or inhale medication. Should not eat or drink for 30 minutes after administrati on. 1 Inhaler 1 12/05/2020 Active Active Problems Problem Noted Date Diagnosed Date Eosinophilic esophagitis 12/05/2020 Dysphagia 07/24/2020 Overview (07/24/2020): Added automatically from request for surgery [id number] Pain of foot 06/24/2011 Social History Tobacco Use Types Packs/Day Years Used Date Smoking Tobacco: Never Personal Safety Answer Date Recorded Getting School Help Needed Not on file 10/29 Sex and Gender Information Value Date Recorded Sex Assigned at Not on file Legal Sex Male 4:02 AM TUNG NUT [employer] Gender Identity Not on file Sexual Orientation [...] Plan of Treatment Not on file Insurance [employer] [place] [employer] [place] Advance Directives For more information, please contact: [phone] * Full Code (Latest Code Status on File) Date Activated Date Inactivated Comments 10/08/2020 9:17 AM 10/08/2020 3:38 PM * Full Code Date Activated Date Inactivated Comments 10/08/2020 8:58 AM 10/08/2020 9:16 AM Care Teams Reverse Unit Operator Fisherman Relationship Specialty Start Date End Date Jessica Ayala MD PCP - General Family Practice 07/03/20
--- OUTSIDE RECORDS SUMMARY | 2024-10-09 10:42 | XMS_ITS | Patient Health Record ---
Author Organization [facility] Address [address] [place] [address] Care Team Providers Care Dumpster Operator Name Role Phone Gladys Ayalamarissasugey Primary Care Provider Un available Petr Escudero Unavailable [phone] Hemanth Nino Unavailable [phone] [employer], Provider Unavailable Unavailab le Allergies No Known Allergies Reason For Referral No Information Medications Medication SIG (Take, Route, Frequency, Duration) Notes Start Date End Date Status metFORMIN HCl 500 MG 1 tab(s) orally 2 times a day for 30 day(s) Active Atorvastatin Calcium 20 MG 1 tab(s) orally once a day for 30 day(s) Active Pataday 0.2 % 1 gtt in each affected eye once a day for 10 day(s) Not-Taking NASONEX 50 MCG/INH 2 SPRAY(S) INTRANASALLY ONCE A DAY for 30 DAY(S) *Please review for potential replacement for e-prescription and drug interaction check* Not-Taking ATORVASTATIN 20 mg 1 tab(s) orally once a day for 30 day(s) Active OMEPRAZOLE 20 mg 1 cap(s) orally once a day for 30 day(s) Active PATADAY 0.2% 1 gtt in each affected eye once a day for 10 day(s) Not-Taking METFORMIN 500 mg 1 tab(s) orally 2 times a day for 30 day(s) Active ZyrTEC Allergy 10 MG 1 tab(s) orally PRN Active Auvi-Q 0.3 MG/0.3ML 0.3 mg intramuscularly once for 30 days Active Omeprazole 20 MG 1 cap(s) orally once a day for 30 day(s) Active SIT (TRADITIONAL) VARIABLE PER SCHEDULE SC PER SCHEDULE *Please review for potential replacement for e-prescription and drug interaction check* Active SIT (TRADITIONAL) variable per schedule SC per schedule for to be determined Active ZYRTEC 10 mg 1 tab(s) orally PRN Active AUVI -Q 0.3 mg 0.3 mg intramuscularly once for 30 days Active Immunizations Vaccine Route Administration Date Status Comme nts NOC Fluzone Quadrivalent Unknown 10/13/2018 Refused Fluzone Quadrivalent Unknown 04/29/2016 Administered Fluzone Quadrivalent Unknown 06/08/2014 Administered Flucelvax Unknown 06/08/2019 Refused Social History Tobacco Use: Social History Observation Description Date Details (start date - stop date) Never Smoker NA - NA Smoking Smart Form: Question Answer Notes Are you a: never smoker Tobacco Control (Standard) Question Answer Notes Tobacco use: Nonsmoker Problems Problem Type SNOMED Code ICD Code Onset Dates Problem Status W/U Status Risk Notes Problem Chronic allergic conjunctivitis (42989441) Other chronic allergic conjunctivitis (H10.45) Active confirmed Problem Allergic rhinitis caused by pollen (disorder) (88321970) Allergic rhinitis due to pollen (J30.1) Active confirmed Problem Anosmia (08476518) Anosmia (R43.0) Active confirmed Problem Allergic rhinitis caused by pollen (disorder) (98445083) Allergic rhinitis due to pollen (J30.1) Active confirmed Problem Allergic rhinitis caused by animal hair and dander (190165429683300) Allergic rhinitis due to animal (cat) (dog) hair and dander (J30.81) Active confirmed Problem Allergic rhinitis (41052086) Other allergic rhinitis (J30.89) Active confirmed Problem Chronic allergic conjunctivitis (99109226) Other chronic allergic conjunctivitis (H10.45) Active confirmed Vital Signs Oximetry 97 % 12/27/2023 Blood pressure diastolic 88 mm Hg 12/27/2023 Height 73 in 12/27/2023 Blood pressure systolic 127 mm Hg 12/27/2023 Weight 252.0 lbs 12/27/2023 BMI 33.24 kg/m2 12/27/2023 Encounters Encounter Location Date Provider Diagnosis [facility] [address] [facility] [address] [place] [address] 12/27/2023 Hemanth Nino Allergic rhinitis du e to pollen J30.1 ; Allergic rhinitis due to animal (cat) (dog) hair and dander J30.81 ; Other allergic rhinitis J30.89 and Other chronic allergic conjunctivitis H10.[address] [facility] [address] [place] [address] [address] [address] 10/13/2023 Petr Kota Allergic rhinitis du e to pollen J30.1 ; Other allergic rhinitis J30.89 ; Allergic rhinitis due to animal (cat) (dog) hair and dander J30.81 and Other chronic allergic conjunctivitis H10.[address] [facility] [address] [place] [address] General [address] [address] 11/08/2023 Petrmurali Escudero Allergic rhinitis du e to pollen J30.1 ; Other allergic rhinitis J30.89 ; Allergic rhinitis due to animal (cat) (dog) hair and dander J30.81 and Other chronic allergic conjunctivitis H10.[address] [facility] [address] [place] [address] 01/03/2024 Petrmurali Escudero Allergic rhinitis du e to pollen J30.1 ; Other allergic rhinitis J30.89 ; Allergic rhinitis due to animal (cat) (dog) hair and dander J30.81 and Other chronic allergic conjunctivitis H10.[address] [facility] [address] [place] [address] 02/07/2024 Petrmurali Escudero Allergic rhinitis du e to pollen J30.1 ; Other allergic rhinitis J30.89 ; Allergic rhinitis due to animal (cat) (dog) hair and dander J30.81 and Other chronic allergic conjunctivitis H10.[address] [facility] [address] [place] [address] General [address] [address] 03/30/2024 Petr Escudero Allergic rhinitis du e to pollen J30.1 ; Other allergic rhinitis J30.89 ; Allergic rhinitis due to animal (cat) (dog) hair and dander J30.81 and Other chronic allergic conjunctivitis H10.[address] [facility] [address] [place] [address] General [address] [address] 04/10/2024 Petr Escudero Allergic rhinitis du e to pollen J30.1 ; Other allergic rhinitis J30.89 ; Allergic rhinitis due to animal (cat) (dog) hair and dander J30.81 and Other chronic allergic conjunctivitis H10.[address] [facility] [address] [place] [address] 04/18/2024 Petr Kota Allergic rhinitis du e to pollen J30.1 ; Other allergic rhinitis J30.89 ; Allergic rhinitis due to animal (cat) (dog) hair and dander J30.81 and Other chronic allergic conjunctivitis H10.[address] [facility] [address] [place] [address] 05/18/2024 Petr Escudero Allergic rhinitis du e to pollen J30.1 ; Other allergic rhinitis J30.89 ; Allergic rhinitis due to animal (cat) (dog) hair and dander J30.81 and Other chronic allergic conjunctivitis H10.[address] [facility] [address] [place] [address] 06/12/2024 Petr Escudero Allergic rhinitis du e to pollen J30.1 ; Other allergic rhinitis J30.89 ; Allergic rhinitis due to animal (cat) (dog) hair and dander J30.81 and Other chronic allergic conjunctivitis H10.[address] [facility] [address] [place] [address] 06/19/2024 Petr Escudero Allergic rhinitis du e to pollen J30.1 ; Other allergic rhinitis J30.89 ; Allergic rhinitis due to animal (cat) (dog) hair and dander J30.81 and Other chronic allergic conjunctivitis H10.[address] [facility] [address] [place] [address] 06/26/2024 Petr Escudero Allergic rhinitis du e to pollen J30.1 ; Other allergic rhinitis J30.89 ; Allergic rhinitis due to animal (cat) (dog) hair and dander J30.81 and Other chronic allergic conjunctivitis H10.[address] [facility] [address] [place] [phone] 07/24/2024 Petr Escudero Allergic rhinitis du e to pollen J30.1 ; Other allergic rhinitis J30.89 ; Allergic rhinitis due to animal (cat) (dog) hair and dander J30.81 and Other chronic allergic conjunctivitis H10.[address] [facility] [address] [facility] [address] [place] [address] 08/31/2024 Petr Escudero Allergic rhinitis du e to pollen J30.1 ; Other allergic rhinitis J30.89 ; Allergic rhinitis due to animal (cat) (dog) hair and dander J30.81 and Other chronic allergic conjunctivitis H10.45 [facility] [address] [place] [address] 01/29/2024 Provider Shaheen Allergic rhinitis due to pollen J30.1 Assessments Encounter Date Diagnosis (ICD Code) Assessment Notes Treatment Notes Treatment Clinical Notes Section Notes 10/13/2023 Allergic rhinitis due to pollen (ICD-10 - J30.1) 11/08/2023 Allergic rhinitis due to pollen (ICD-10 - J30.1) 12/27/2023 Allergic rhinitis due to pollen (ICD-10 - J30.1) Shree was doing great from an allergy standpoint with control of symptoms with SCIT only and Zyrtec PRN - MM SCIT since 2017, previously with 5+ of MM prior to restarting. Plans to continue indefinitely - Dosing received today without issues. AIE refilled - Discussed potentially holding SCIT vs reformulation but not interested at this time. Feels he is having increased breakthrough in Spring and Fall. Would consdier increasing dose voluem to 0.5 ml. Will await Fall to reasses - Follow-up in 1 month for SCIT and in 3 months for routine follow-up. Increase SCIT frequency in peak seasons PRN 12/27/2023 Allergic rhinitis due to animal (cat) (dog) hair and dander (ICD-10 - J30.81) Follow allergen avoidance, meds and continue SCIT per schedule 01/03/2024 Allergic rhinitis due to pollen (ICD-10 - J30.1) 01/29/2024 Allergic rhinitis due to pollen (ICD-10 - J30.1) 02/07/2024 Allergic rhinitis due to pollen (ICD-10 - J30.1) 03/30/2024 Allergic rhinitis due to pollen (ICD-10 - J30.1) 04/10/2024 Allergic rhinitis due to pollen (ICD-10 - J30.1) 04/18/2024 Allergic rhinitis due to pollen (ICD-10 - J30.1) 05/18/2024 Allergic rhinitis due to pollen (ICD-10 - J30.1) 06/12/2024 Allergic rhinitis due to pollen (ICD-10 - J30.1) 06/19/2024 Allergic rhinitis due to pollen (ICD-10 - J30.1) 06/26/2024 Allergic rhinitis due to pollen (ICD-10 - J30.1) 07/24/2024 Allergic rhinitis due to pollen (ICD-10 - J30.1) 08/31/2024 Allergic rhinitis due to pollen (ICD-10 - J30.1) 08/31/2024 Other allergic rhinitis (ICD-10 - J30.89) 07/24/2024 Other allergic rhinitis (ICD-10 - J30.89) 06/26/2024 Other allergic rhinitis (ICD-10 - J30.89) 06/19/2024 Other allergic rhinitis (ICD-10 - J30.89) 06/12/2024 Other allergic rhinitis (ICD-10 - J30.89) 05/18/2024 Other allergic rhinitis (ICD-10 - J30.89) 01/03/2024 Other allergic rhinitis (ICD-10 - J30.89) 04/18/2024 Other allergic rhinitis (ICD-10 - J30.89) 04/10/2024 Other allergic rhinitis (ICD-10 - J30.89) 03/30/2024 Other allergic rhinitis (ICD-10 - J30.89) 02/07/2024 Other allergic rhinitis (ICD-10 - J30.89) 12/27/2023 Other allergic rhinitis (ICD-10 - J30.89) Follow allergen avoidance, meds and continue SCIT 11/08/2023 Other allergic rhinitis (ICD-10 - J30.89) 10/13/2023 Other allergic rhinitis (ICD-10 - J30.89) 10/13/2023 Allergic rhinitis due to animal (cat) (dog) hair and dander (ICD-10 - J30.81) 11/08/2023 Allergic rhinitis due to animal (cat) (dog) hair and dander (ICD-10 - J30.81) 12/27/2023 Other chronic allergic conjunctivitis (ICD-10 - H10.45) Continue allergen avoidance measures, prn medications and continue SCIT as an adjunctive measure 01/03/2024 Allergic rhinitis due to animal (cat) (dog) hair and dander (ICD-10 - J30.81) 02/07/2024 Allergic rhinitis due to animal (cat) (dog) hair and dander (ICD-10 - J30.81) 03/30/2024 Allergic rhinitis due to animal (cat) (dog) hair and dander (ICD-10 - J30.81) 04/10/2024 Allergic rhinitis due to animal (cat) (dog) hair and dander (ICD-10 - J30.81) 04/18/2024 Allergic rhinitis due to animal (cat) (dog) hair and dander (ICD-10 - J30.81) 05/18/2024 Allergic rhinitis due to animal (cat) (dog) hair and dander (ICD-10 - J30.81) 06/12/2024 Allergic rhinitis due to animal (cat) (dog) hair and dander (ICD-10 - J30.81) 06/19/2024 Allergic rhinitis due to animal (cat) (dog) hair and dander (ICD-10 - J30.81) 06/26/2024 Allergic rhinitis due to animal (cat) (dog) hair and dander (ICD-10 - J30.81) 07/24/2024 Allergic rhinitis due to animal (cat) (dog) hair and dander (ICD-10 - J30.81) 08/31/2024 Allergic rhinitis due to animal (cat) (dog) hair and dander (ICD-10 - J30.81) 08/31/2024 Other chronic allergic conjunctivitis (ICD-10 - H10.45) 07/24/2024 Other chronic allergic conjunctivitis (ICD-10 - H10.45) 06/26/2024 Other chronic allergic conjunctivitis (ICD-10 - H10.45) 06/19/2024 Other chronic allergic conjunctivitis (ICD-10 - H10.45) 06/12/2024 Other chronic allergic conjunctivitis (ICD-10 - H10.45) 05/18/2024 Other chronic allergic conjunctivitis (ICD-10 - H10.45) 04/18/2024 Other chronic allergic conjunctivitis (ICD-10 - H10.45) 04/10/2024 Other chronic allergic conjunctivitis (ICD-10 - H10.45) 03/30/2024 Other chronic allergic conjunctivitis (ICD-10 - H10.45) 02/07/2024 Other chronic allergic conjunctivitis (ICD-10 - H10.45) 01/03/2024 Other chronic allergic conjunctivitis (ICD-10 - H10.45) 11/08/2023 Other chronic allergic conjunctivitis (ICD-10 - H10.45) 10/13/2023 Other chronic allergic conjunctivitis (ICD-10 - H10.45) 12/27/2023 Other Plan Of Treatment Next Appt Details Provider Name:Petr Escudero , 10/09/2024 04:30:00 PM, [address] [facility], [address], [address], Insurance Providers Payer Name Payer Address Payer Phone Subscriber Number Group Number Insured Name Patient Relationship to Insured Coverage Start Date Coverage End Date [facility] [address] [place] [address] [id number] Shree Ayala Self - patient is the insured Medical (General) History Medical History History ICD Code Allergic rhinoconjunctivitis Choledochal Cyst Pre Diabetic Hypercholesterolemia Surgical History Surgery Date(Month/Year) Cholecystectomy 1985 Hospitalization History Reason Date(Month/Year)
--- OUTSIDE RECORDS SUMMARY | 2024-10-09 10:42 | XMS_ITS | Referral Summary ---
Author Organization [facility] Address [address] [facility] [place] [address] Care Team Providers Care Draft Roller Picker Name Role Phone Jessica Ayala MD Primary Care Provider Source Comments [facility],non-owned Affiliates and Associated Physician Practices is amultiple site organization consisting of ambulatory clinics and hospital sitesin [place], [place], [place] and [place]. This disclosure is being madepursuant to the Care Everywhere program and may not contain all information available regarding this patient. Last updated 18.[facility] Context Relevant Allergies Active Allergy Reactions Criticality Noted Date Comments Penicillins Unknown 10/17/2016 As a child Medications * Be aware that medications may not be up to date on this document. Alwaysverify current medications with the patient. Medication Sig Dispensed Refills Start Date End Date Status fluticasone propionate (FLONASE) 50 MCG/ACT nasal sprayIndications:Dysf unction of both eustachian tubes [place] 2 sprays into each nostril once daily 1 bottles 03/21/2018 Active Social History Tobacco Use Types Packs/Day Years [...] 03/21/2018 11:10 AM CDT Plan of Treatment Not on file Care Teams Draft Roller Picker Relationship Specialty Start Date End Date Jessica Ayala MD [address] [place] [phone] PCP - General Family Medicine 03/21/18
--- OUTSIDE RECORDS SUMMARY | 2024-10-09 10:42 | XMS_ITS | Encounter Summary ---
Author Organization [facility] Address [address] [place] [address] Care Team Providers Care Shift Stacker Name Role Phone Claudio Franklin MD Primary Care Provider [phone] Encounter Details Date Type Department Care Team (Latest Contact Info) Description 04/30/2008 Outpatient [place] [address] [facility] [address] [place] [address] Screening for Lipoid Disorders Social History Tobacco Use Types Packs/Day Years Used Date Smoking Tobacco: Never Assessed Sex and Gender Information Value Date Recorded Sex Assigned at Not on file Legal Sex Male 5:37 AM [employer] Gender Identity Not on file Sexual Orientation Not on file documented as of this encounter Plan of Treatment Not on file documented as of this encounter Procedures Procedure Name Priority Date/Time Associated Diagnosis Comments XR WRIST 3+ VW RIGHT Routine 04/30/2008 4:03 PM CDT XR HAND 2 VW RIGHT Routine 04/30/2008 4: 03 PM CDT ALT Routine 04/30/2008 3:51 PM CDT AST Routine 04/30/2008 3:51 PM CDT GLUCOSE FASTING Routine 04/30/2008 3:51 PM CDT LIPID PANEL Routine 04/30/2008 3:51 PM CDT documented in this encounter Results * XR WRIST 3+ VW RIGHT (04/30/2008 4:03 PM CDT) Anatomical Region Laterality Modality Wrist / Hand Other 04/30/2008 4:03 PM CDT Narrative 04/30/2008 4:25 PM CDT [id number] [place], [place] [address] Admit Date: 04/30/2008 JACK AYALA Sex: M Admit Prov: CLAUDIO FRANKLIN Date: 1980 Primary Care Prov: CLAUDIO FRANKLIN CMRN: [id number] [id number] Ordering Prov: N/A Accession Number: [id number] Interpretation Right wrist 3 views 04/30/2008 History: Pain . Findings: No acute fracture or subluxation is seen. A small well corticated bony fragment adjacent to the ulnar styloid is seen which which may represent remote injury or accessory ossicle. The joint spaces are well maintained. Impression: No acute abnormality. . Dictated by: SAVANNA BOCANEGRA 04/30/2008 16:22 Electronically signed by: SAVANNA BOCANEGRA 04/30/2008 16:23 Procedure Note Savanna Bocanegra - 04/30/2008 [address] [address] [place], [place] [address] Admit Date: 04/30/2008 JACK AYALA Sex: M Admit Prov: CLAUDIO FRANKLIN Date: 1980 Primary Care Prov: CLAUDIO FRANKLIN CMRN: [id number] Room: [facility] SSN: [id number] IMAGING SERVICES Ordering Prov: N/A Interpretation Right wrist 3 views 04/30/2008 History: Pain . Findings: No acute fracture or subluxation is seen. A small wellcorticated bony fragment adjacent to the ulnar styloid is seen which which may represent remote injury or accessory ossicle. The joint spaces arewell maintained. Impression: No acute abnormality. . Dictated by: SAVANNA BOCANEGRA 04/30/2008 16:22 Electronically signed by: SAVANNA BOCANEGRA 04/30/2008 16:23 Claudio Franklin MD DIAGNOSTIC IMAGING ORDERABLE S Final Result * XR HAND 2 VW RIGHT (04/30/2008 4:03 PM CDT) Anatomical Region Laterality Modality Wrist / Hand Other 04/30/2008 4:03 PM CDT Narrative 04/30/2008 4:30 PM CDT [facility] [address] [place], [place] [address] Admit Date: 04/30/2008 JACK AYALA Sex: M Admit Prov: CLAUDIO FRANKLIN Date: 1980 Primary Care Prov: CLAUDIO FRANKLIN CMRN: [id number] [id number] [facility] Ordering Prov: N/A Accession Number: [id number] Interpretation Right hand 2 views 04/30/2008 History: Pain Findings: No acute fracture or subluxation is seen. A small well corticated bony fragment adjacent to the ulnar styloid is again seen which may represent remote injury. The soft tissues are unremarkable. The joint spaces are well maintained Impression: No acute abnormality. . Dictated by: SAVANNA BOCANEGRA 04/30/2008 16:27 Electronically signed by: SAVANNA BOCANEGRA 04/30/2008 16:28 Procedure Note Savanna Bocanegra - 04/30/2008 [address] [address] [place], [place] [address] Admit Date: 04/30/2008 JACK AYALA Sex: M Admit Prov: CLAUDIO FRANKLIN Date: 1980 Primary Care Prov: CLAUDIO FRANKLIN CMRN: [id number] [id number] IM[facility] Ordering Prov: N/A Interpretation Right hand 2 views 04/30/2008 History: Pain Findings: No acute fracture or subluxation is seen. A small wellcorticated bony fragment adjacent to the ulnar styloid is again seen which may represent remote injury. The soft tissues are unremarkable. Thejoint spaces are well maintained Impression: No acute abnormality. . Dictated by: SAVANNA BOCANEGRA 04/30/2008 16:27 Electronically signed by: SAVANNA BOCANEGRA 04/30/2008 16:28 Claudio Franklin MD DIAGNOSTIC IMAGING ORDERABLE S Final Result * (ABNORMAL) LIPID PANEL (04/30/2008 3:51 PM CDT) HDL 34(L) 40 - 59 mg/dL [facility] CHOLESTEROL 199 100 - 199 mg/dL [facility] CHOL/HDL RATIO 5.9(H) 2.0 - 5.0 [facility] TRIGLYCERIDE 196(H) 10 - 149 mg/dL [facility] LDL CALCULATED 126(H) <=99 mg/dL [facility] LIPID PANEL COMMENT See Below [facility] Comment: The adult ATP and pediatric NCEP classifications for lipids are available on the [facility] Intranet at: [email or web address] Select: Lab Policies and Procedures,Current Select: Lipid Panel Interpretation Blood specimen (specimen) 04/30/2008 3:51 PM CDT 04/30/2008 7:53 PM CDT Claudio Franklin MD CHEMISTRY ORDERABLES Edited INTERFACE SYSTEM Refer to clinic/hospital department [facility] CLIA# [id number] [address] [place] [address] * GLUCOSE FASTING (04/30/2008 3:51 PM CDT) GLUCOSE FASTING 95 65 - 99 mg/dL [facility] Blood specimen (specimen) 04/30/2008 3:51 PM CDT 04/30/2008 7:53 PM CDT us Claudio Franklin MD CHEMISTRY ORDERABLES Final R esult Performing Organization Address [facility] Phone Number INTERFACE SYSTEM Refer to clinic/hospital department [facility] CLIA# [id number] [address] [place] [address] * AST (04/30/2008 3:51 PM CDT) AST 18 12 - 38 U/L [facility] Blood specimen (specimen) 04/30/2008 3:51 PM CDT 04/30/2008 7:53 PM CDT Claudio Franklin MD CHEMISTRY ORDERABLES Final R esult Performing Organization Address [facility] Phone Number INTERFACE SYSTEM Refer to clinic/hospital department [facility] CLIA# [id number] [address] [place] [address] * ALT (04/30/2008 3:51 PM CDT) ALT 21 0 - 41 U/L [facility] Blood specimen (specimen) 04/30/2008 3:51 PM CDT 04/30/2008 7:53 PM CDT Claudio Franklin MD CHEMISTRY ORDERABLES Final R esult Performing Organization Address [facility] Phone Number INTERFACE SYSTEM Refer to clinic/hospital department [facility] CLIA# [id number] [address] [place] [address] documented in this encounter Visit Diagnoses Diagnosis Screening for lipoid disorders documented in this encounter Additional Health Concerns Infection Onset Date Last Indicated 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
[2024-10-09 12:21] LABS: Alanine Aminotransferase 33 U/L (6-50); Albumin Level 4.4 g/dL (3.5-5.1); Alkaline Phosphatase 61 U/L (38-126); Anion Gap 13 mmol/L (4-12); Aspartate Amino Transferase 36 U/L (17-59); Bilirubin,Total 0.8 mg/dL (0.2-1.3); Blood Urea Nitrogen 14 mg/dL (9-20); Calcium 9.2 mg/dL (8.4-10.2); Carbon Dioxide 24 mmol/L (22-30); Chloride 103 mmol/L (98-107); Estimated Glomerular Filt Rate > 60; Glucose 156 mg/dL (65-110); Potassium 4.3 mmol/L (3.4-5.0); Sodium 140 mmol/L (137-145)
[2024-10-09 14:32] LABS: Hemoglobin A1C 8.3 % (<5.7)
== END 2024-10-09 09:48 | disposition home or self-care (01) ==
PROVIDERS: PCP Family Medicine; Visit Provider Family Medicine
DX: E78.5 Hyperlipidemia, unspecified (principal); E11.9 Type 2 diabetes mellitus without complications
CPT/HCPCS: 36415; 80053; 83036